=== PATIENT | male | born 1995 | race African-American/Black ===

== ENCOUNTER 2018-04-06 22:16 | Emergency (ER) | payer OTHER ==
[2018-04-06 22:42] VITALS: TEMP 97.9
--- NOTE | 2018-04-07 00:40 | ED ---
Fall HPI - General Chief Complaint: Fall Stated Complaint: Fall, head injury Time Seen by Provider: 04/06/18 23:27 Source: patient, RN notes reviewed, old records reviewed Mode of arrival: ambulatory - History of Present Illness Initial Comments: Patient is a 22 year old male with CC of Slipped and fell at work today at 1pm. Patient slipped on water and hit his head and neck. Patient denies loss of consciousness. He reports that he had some changes in vision later this evening. He complains of a headache to the posterior head. Patient states that his vision changes have subsided. No vomiting episodes. He presents emergency room with his father who reports he is an alert and oriented. - Related Data Previous Rx's Medication Instructions Recorded Acetaminophen Tab [Tylenol Tab] 650 mg PO Q6H #20 tablet 04/07/18 Ibuprofen 600 mg PO TID #20 tablet 04/07/18 Ondansetron Odt [Zofran Odt] 4 mg PO Q8HR PRN #12 tab 04/07/18 Allergies Allergy/AdvReac Type Severity Reaction Status Date / Time No Known Allergies Allergy Verified 04/06/18 23:04 Review of Systems ROS Statement: Those systems with pertinent positive or pertinent negative responses have been documented in the HPI. ROS Other: All systems not noted in ROS Statement are negative. Past Medical History Additional Past Medical History / Comment(s): heart murmur History of Any Multi-Drug Resistant Organisms: None Reported Past Surgical History: No Surgical Hx Reported Past Psychological History: No Psychological Hx Reported Smoking Status: Current every day smoker Past Alcohol Use History: None Reported Past Drug Use History: None Reported General Exam - General Exam Comments Initial Comments: Well-appearing -[place] 22-year-old male. No distress. Limitations: no limitations General appearance: alert, in no apparent distress Head exam: Present: atraumatic, normocephalic, normal inspection Eye exam: Present: normal appearance, PERRL, EOMI. Absent: scleral icterus, conjunctival injection, periorbital swelling ENT exam: Present: normal exam, mucous membranes moist Neck exam: Present: normal inspection. Absent: tenderness, meningismus, lymphadenopathy Respiratory exam: Present: normal lung sounds bilaterally. Absent: respiratory distress, wheezes, rales, rhonchi, stridor Cardiovascular Exam: Present: regular rate, normal rhythm, normal heart sounds. Absent: systolic murmur, diastolic murmur, rubs, gallop, clicks GI/Abdominal exam: Present: soft, normal bowel sounds. Absent: distended, tenderness, guarding, rebound, rigid Extremities exam: Present: normal inspection, full ROM, normal capillary refill. Absent: tenderness, pedal edema, joint swelling, calf tenderness Back exam: Present: normal inspection Neurological exam: Present: alert, oriented X3, CN II-XII intact Psychiatric exam: Present: normal affect, normal mood Skin exam: Present: warm, dry, intact, normal color. Absent: rash Course Vital Signs 04/06/18 04/07/18 22:36 01:37 Temperature 97.9 F Pulse Rate 88 79 Respiratory 20 16 Rate Blood Pressure 117/78 115/72 O2 Sat by Pulse 97 97 Oximetry Medical Decision Making - Medical Decision Making Patient is a 22-year-old male who presents today with chief complaint of slip and follow-up work. He hit the back of his head. He complained of some changes in his vision at that time. This is perfectly 12 hours after the fall he still complains of a headache. He has no neurological deficits. No lateralizing findings. CT of the brain and neck were completely negative for any acute process. Patient at this time was advised to have follow-up with his primary care provider. We'll treat the Patient for concussion. Patient will Be discharged with Motrin Tylenol Zofran. Patient understands treatment plan will comply. Given a note for work. - Radiology Data Radiology results: report reviewed CT of the brain is negative for any acute process. CT of cervical spine shows some change of curvature due to muscle spasm. No acute fracture. Disposition Clinical Impression: Head injury, Concussion Disposition: HOME SELF-CARE Condition: Good Instructions: Concussion (ED) Additional Instructions: Patient and Motrin tunnel for pain. Follow-up with primary care physician. Return to emergency department if any alarming signs or symptoms occur. Prescriptions: Acetaminophen Tab [Tylenol Tab] 650 mg PO Q6H #20 tablet Ibuprofen 600 mg PO TID #20 tablet Ondansetron Odt [Zofran Odt] 4 mg PO Q8HR PRN #12 tab PRN Reason: Nausea Is patient prescribed a controlled substance at d/c from ED?: No Referrals: Justin Johansen MD [Primary Care Provider] - 1-2 days Time of Disposition: 01:21
--- NOTE | 2018-04-07 01:10 | CT ---
EXAMINATION TYPE: CT brain alaina stevenson con DATE OF EXAM: 04/07/2018 COMPARISON: None HISTORY: patient fell and hit back of head CT DLP: 1366.4 mGycm Automated exposure control for dose reduction was used. TECHNIQUE: CT scan of the head and cervical spine are performed without contrast. FINDINGS: Ventricles of normal size. There is no mass effect nor midline shift. There is no sign of i ntracranial hemorrhage. Calvarium is intact. There is mild straightening of the cervical vertebra. Posterior elements are intact. Facet joints chato ear normal. Skull base is intact. Prevertebral soft tissues appear normal. Disc spaces are normal. IMPRESSION: Negative CT scan of the brain. Mild straightening of the vertebra that could be positional. No fracture seen in the cervical spine.
[2018-04-07] MEDS ORDERED: ACETAMINOPHEN TAB 500 MG TAB PO STA (01:20)
[2018-04-07] MEDS ORDERED: IBUPROFEN 600 MG TAB PO STA (01:20)
[2018-04-07] MEDS ORDERED: MECLIZINE 12.5 MG TAB PO STA (01:20)
[2018-04-07 01:39] VITALS: BP 115/72; PULSE 79; RESP 16
== END 2018-04-07 01:33 | disposition home or self-care (01) ==
LOC: EC 22:16
DX: S06.0X0A Concussion without loss of consciousness, initial encounter (principal); M62.830 Muscle spasm of back; F17.200 Nicotine dependence, unspecified, uncomplicated; W01.0XXA Fall on same level from slipping, tripping and stumbling without subsequent striking against object, initial encounter; Y92.69 Other specified industrial and construction area as the place of occurrence of the external cause; Y99.0 Civilian activity done for income or pay
CPT/HCPCS: 70450; 72125; 99284